=== PATIENT | male | born 1995 | race Caucasian/White ===

== ENCOUNTER 2019-07-11 09:37 | Emergency (ER) | payer OTHER, SELFPAY ==
[2019-07-11 10:14] VITALS: BP 124/72; PULSE 102; RESP 16; TEMP 37.8; O2SAT 99
--- NOTE | 2019-07-11 10:32 | ED.SKABFB ---
HPI - Skin/Abscess/Foreign Bdy General Chief complaint: Skin/Abscess/Foreign Body Stated complaint: insect bite Time Seen by Provider: 07/11/19 10:25 Source: patient and RN notes reviewed Mode of arrival: ambulatory Limitations: no limitations History of Present Illness HPI narrative: Patient presents today complaining of an infected insect bite to the left posterior shoulder. He noted the area last night. He has tried no [id number] interventions prior to arrival. Denies any recent antibiotic use. No history of abscesses or boils. MD complaint: insect bite/sting Related Data Allergies Allergy/AdvReac Type Severity Reaction Status Date / Time No Known Allergies Allergy Verified 07/11/19 10:22 Review of Systems Review of Systems: Narrative: CONSTITUTIONAL: Denies body aches, fever, chills, or sweats. EYES: Denies visual changes, redness, or discharge. ENT: Denies rhinorrhea, congestion, sore throat, or otalgia. CARDIOVASCULAR: Denies chest pain, palpitations, or edema. RESPIRATORY: Denies cough or dyspnea. GASTROINTESTINAL: Denies abdominal pain, nausea, vomiting, or diarrhea. GENITOURINARY: Denies dysuria or hematuria. SKIN: Insect bite to left posterior shoulder. MUSCULOSKELETAL: Denies back pain, joint pain, or myalgia. NEUROLOGIC: Denies headache, numbness, tingling, or weakness. PSYCH: Denies depression or anxiety. PMFSH Comments At time of signature, I have reviewed and agree with nursing past medical, surgical, social and family history unless otherwise noted. Please see nursing chart for further information. There is no relevant family history pertinent to the presenting complaint Exam Narrative: Exam Narrative: GENERAL: Well-appearing, well-nourished, and in no acute distress. HEAD: Normocephalic, atraumatic. EYES: EOMI. No redness or drainage. Conjunctivae normal. ENT: Mucous membranes pink and moist. NECK: Normal AROM. CHEST: No respiratory distress. EXTREMITIES: Normal range of motion. No edema. SKIN: Warm, dry. Capillary refill normal. Normal skin turgor. 6 x 8 cm area of erythema without induration to the left posterior shoulder, with pinpoint pustule in the center. No fluctuance. No ecchymosis. Mildly tender to palpation. No edema. NEURO: No focal deficits. Alert and oriented x3. Gait steady. PSYCH: Normal affect. No signs of depression or anxiety. Course Vital Signs Vital signs: Vital Signs Temperature 100.0 F H 07/11/19 10:14 Pulse Rate 102 H 07/11/19 10:14 Respiratory Rate 16 07/11/19 10:14 Blood Pressure 124/72 07/11/19 10:14 Pulse Oximetry 99 07/11/19 10:14 Temperature 100.0 F H 07/11/19 10:14 Pulse Rate 102 H 07/11/19 10:14 Respiratory Rate 16 07/11/19 10:14 Blood Pressure 124/72 07/11/19 10:14 Pulse Oximetry 99 07/11/19 10:14 Reviewed. Pt has been instructed to follow up with his PCP regarding his elevated blood pressure today. MDM - Skin/Abscess/Foreign Bdy Differential Diagnosis Differential diagnosis: Likely abscess of skin or subcutaneous tissue, cellulitis, insect bites, impetigo and contact dermatitis Critical Care Time Critical Care Time Critical Care Time: No Discharge Plan Discharge Clinical Impression: Infected insect bite Qualifiers: Encounter type: initial encounter Qualified Code(s): W57.XXXA - Bitten or stung by nonvenomous insect and other nonvenomous arthropods, initial encounter Patient Disposition: Home, Self-Care Condition: Stable Instructions: Antibiotic Form, Cellulitis (DC), Insect Bite or Sting (ED) Additional Instructions: Please take the Bactrim as prescribed. Take Tylenol, Aleve, or ibuprofen for pain. You may also try some topical hydrocortisone. Please wear sunscreen and other body coverings if you are going to be out in the sun, as you can sustain a sunburn more readily when you are taking the Bactrim. Follow-up with your PCP with any concerns or worsening symptoms. Your blood pressure wa
== END 2019-07-11 10:36 | disposition home or self-care (01) ==
PROVIDERS: Emergency Provider Nurse Practitioner
DX: S40.262A Insect bite (nonvenomous) of left shoulder, initial encounter (principal); W57.XXXA Bitten or stung by nonvenomous insect and other nonvenomous arthropods, initial encounter
CPT/HCPCS: 99203; G0463